=== PATIENT | female | born 1960 | race Caucasian/White ===

== ENCOUNTER 2019-06-24 12:40 | Inpatient (IN) | payer BC ==
[2019-06-24] VITALS (9 sets, daily range): BP systolic 109–148; BP diastolic 60–98
[~2019-06-24] VITALS: Ht 167.6 cm; Wt 63.2 kg
--- NOTE | ~2019-06-24 | EMS ---
[address] [address] EMS Patient Care Report Name: ELIZABETH DOUGHERTY Room #: 213-P ADM IN M.R.#: [id number] Admission: 06/24/19 Attend Phys: Lupillo Stark MD Discharge: Date of : 64 Report #: [id number] THIS REPORT FOR: //name// Report Transmitted: 06/24/2019 14:38 EMS Care Summary [facility] MED-ACT Incident [id number] @ 06/24/2019 12:05 Incident [address] [place] [address] Patient ELIZABETH MORALES Female, 58 Years 1960 Patient Address [address] [place] [address] Patient History Fibromyalgia, Patient Allergies Sulfa, Patient Medications None Reported, Chief Complaint "I'm having chest pain" Disposition Transported No Lights/[place] Dispatch Reason Chest Pain (Non-Traumatic) Transported To [facility] Narrative EMS dispatched to a local residence for a female patient who states that about 15 minutes ago she started having some chest pain while "sitting on the couch looking at Facebook". The patient describes her pain as sharp, and radiating pain to the center of her shoulder blades. The patient denies: shortness of [address] [address] EMS Patient Care Report Name: ELIZABETH DOUGHERTY Room #: 213-P ADM IN [place]#: [id number] Admission: 06/24/19 Attend Phys: Lupillo Stark MD Discharge: Date of : 64 Report #: [id number] breath, abdominal pain, numbness or tingling in her upper or lower extremities, difficulty speaking, recent illness, recent trauma or injury, shortness of breath upon exertion. In addition, the patient states she does have an increase in pain upon inspiration. Initial assessment is performed on patient with bilateral blood pressures, 12lead and Aspirin administration. Shortly after the 12lead "flags" a STEMI, dispatch is contacted for closes facility. [place] is alerted of STEMI activation and the 12lead is sent to [facility]. The cot is brought into the patient's house as to not physically exert the patient. She is able to stand and pivot to cot where secured with shoulder straps. The patient is then moved to MICU Where secured. En route to MICU multiple 12leads are performed to confirm STEMI. Once secured in the MICU, IV is established, Fentanyl is given and Nitroglycerine is administered per protocol. The hospital is updated multiple times en route of condition and treatment plan. Upon arrival at the hospital, the ER doctor is given report along with the RN. The patient is moved to hospital bed via sheet drag and care is transferred without incident. Initial Vitals @12:32P: 97,R: 16,BP: 176/108,Pain: 6/10,GCS: 15,SpO2: 100,Revised Trauma: 12,CA Suspected: true @12:17P: 96,R: 16,BP: 191/121,Pain: 8/10,GCS: 15,SpO2: 100,Revised Trauma: 12,CA Suspected: true @12:25P: 104,R: 16,BP: 188/118,Pain: 6/10,GCS: 15,Glucose: 107,SpO2: 100,Revised Trauma: 12,CA Suspected: true @PTAP: 106,R: 16,BP: 173/94,Pain: 8/10,GCS: 15,SpO2: 100,Revised Trauma: 12,CA Suspected: false @12:16P: 105,R: 16,BP: 192/123,Pain: 8/10,GCS: 15,SpO2: 99,Revised Trauma: 12,CA Suspected: true @12:29P: 96,R: 16,BP: 180/113,Pain: 6/10,GCS: 15,SpO2: 100,Revised Trauma: 12,CA Suspected: true @12:14P: 103,R: 16,BP: 192/123,Pain: 8/10,GCS: 15,SpO2: 100,Revised Trauma: 12,CA Suspected: true @12:27P: 107,R: 16,BP: 182/114,Pain: 6/10,GCS: 15,SpO2: 100,Revised Trauma: 12,CA Suspected: true @12:35P: 99,R: 16,BP: 175/105,Pain: 4/10,GCS: 15,SpO2: 100,Revised Trauma: 12,CA Suspected: true Assessments @12:14MENTAL:Person Oriented,Time Oriented,Event Oriented,Place Oriented,SKIN:HEENT:Head/Face: No Abnormalities,LUNG SOUNDS:General: No Abnormalities,ABDOMEN:General: No Abnormalities,PELVIS//GI:No Abnormalities,EXTREMITIES:Left Arm: No Abnormalities,Right Arm: No Abnormalities,Left Leg: No Abnormalities,Right Leg: No [facility] [address] [place] [address] EMS Patient Care Report Name: ELIZABETH DOUGHERTY Room #: 213-P ADM IN [place].#: [id number] Admission: 06/24/19 Attend Phys: Lupillo Stark MD Discharge: Date of : 64 Report #: [id number] Abnormalities,PULSE:NEURO:No Abnormalities,@12:30MENTAL:Event Oriented,Person Oriented,Place Oriented,Time Oriented,SKIN:HEENT:Head/Face: No Abnormalities,LUNG SOUNDS:General: No Abnormalities,ABDOMEN:General: No Abnormalities,PELVIS//GI:EXTREMITIES:Left Arm: No Abnormalities,Right Arm: No Abnormalities,Left Leg: No Abnormalities,Right Leg: No Abnormalities,PULSE:NEURO:No Abnormalities, Impression Chest Pain / Discomfort Procedures @12:3512-Lead ECGResponse: UnchangedSucceeded@12:1412-Lead ECGResponse: UnchangedSucceeded@12:1712-Lead ECGResponse: UnchangedSucceeded@12:2912-Lead ECGResponse: UnchangedSucceeded@12:32Saline Lock 10cc (20 ga) Site: Hand-LeftResponse: UnchangedSucceeded@12:32Nitroglycerin - 0.4 Milligrams (mg) - SublingualResponse: Improved@12:32Fentanyl - 50 Micrograms (mcg) - Intravenous (IV)Response: Improved@12:15Aspirin - 324 Milligrams (mg) - OralResponse: Unchanged Timeline ENGINEERING FACULTY,BP: 173/94 M,PULSE: 106,RR: 16 R,SPO2: 100 Ox,ETCO2: ,BG: ,PAIN: 8,GCS: 15, 12:05,Call Received 12:05,Psap Call 12:05,Dispatched 12:06,En Route 12:12,On Scene 12:13,At Patient 12:14,12-Lead ECG,Response: UnchangedSucceeded, 12:14,BP: 192/123 M,PULSE: 103,RR: 16 R,SPO2: 100 Ox,ETCO2: ,BG: ,PAIN: 8,GCS: 15, 12:15,Aspirin - 324 Milligrams (mg) - Oral,Response: Unchanged 12:16,BP: 192/123 M,PULSE: 105,RR: 16 R,SPO2: 99 Ox,ETCO2: ,BG: ,PAIN: 8,GCS: 15, 12:17,12-Lead ECG,Response: UnchangedSucceeded, 12:17,BP: 191/121 M,PULSE: 96,RR: 16 R,SPO2: 100 Ox,ETCO2: ,BG: ,PAIN: 8,GCS: 15, 12:25,BP: 188/118 M,PULSE: 104,RR: 16 R,SPO2: 100 Ox,ETCO2: ,B,PAIN: 6,GCS: 15, 12:27,Depart Scene 12:27,BP: 182/114 M,PULSE: 107,RR: 16 R,SPO2: 100 Ox,ETCO2: ,BG: ,PAIN: 6,GCS: 15, 12:29,12-Lead ECG,Response: UnchangedSucceeded, 12:29,BP: 180/113 M,PULSE: 96,RR: 16 R,SPO2: 100 Ox,ETCO2: ,BG: ,PAIN: 6,GCS: 15, 12:32,Saline Lock 10cc 20 ga Site: Hand-Left,Response: UnchangedSucceeded, 12:32,Fentanyl - 50 Micrograms (mcg) - Intravenous (IV),Response: Improved [facility] [address] [place] [address] EMS Patient Care Report Name: ELIZABETH DOUGHERTY Room #: 213-P ADM IN M.R.#: [id number] Admission: 06/24/19 Attend Phys: Lupillo Stark MD Discharge: Date of : 64 Report #: [id number] 12:32,Nitroglycerin - 0.4 Milligrams (mg) - Sublingual,Response: Improved 12:32,BP: 176/108 M,PULSE: 97,RR: 16 R,SPO2: 100 Ox,ETCO2: ,BG: ,PAIN: 6,GCS: 15, 12:35,12-Lead ECG,Response: UnchangedSucceeded, 12:35,BP: 175/105 M,PULSE: 99,RR: 16 R,SPO2: 100 Ox,ETCO2: ,BG: ,PAIN: 4,GCS: 15, 12:37,At Destination 13:19,Call Closed Disclaimer v1.1 Copyright 2019 [employer] This EMS Care Summary contains data elements from the applicable legal record (which may be displayed differently). It is designed to provide pertinent information for the following purposes: continuity of care, clinical quality, and state data reporting. The complete legal record is available to ED staff and administrators of the receiving hospital in [employer] Patient Tracker. All data is provided "as is."
[2019-06-24 13:03] LABS: CREATININE 0.8 mg/dL (0.6-1.0); POTASSIUM 3.6 mmol/L (3.5-5.1)
[2019-06-24 13:05] LABS: ABSOLUTE NEUTROPHILS 3.3 thou/uL (1.4-8.2); BASOPHILS 1.2 % (0.0-2.0); EOSINOPHILS 0.5 % (0.0-3.0); HEMATOCRIT 42.1 % (37.0-47.0); HEMOGLOBIN 14.3 gm/dL (12.0-15.0); LYMPHOCYTES 35.1 % (24.0-44.0); MCH 30.9 pg (26.0-34.0); MCHC 33.9 g/dL (28.0-37.0); MCV 91.2 fL (80.0-100.0); MONOCYTES 4.9 % (1.0-8.0); PLATELET COUNT 192 thou/uL (150-400); POLYS 58.3 % (36.0-66.0); RBC 4.62 mil/uL (4.20-5.00); RDW 13.2 % (10.5-14.5); WBC 5.7 thou/uL (4.0-11.0)
[2019-06-24 13:16] LABS: TROPONIN-I 0.92 ng/mL (<0.06)
--- NOTE | 2019-06-24 15:58 | CATHLAB ---
[facility] [address] [place] [address] INVASIVE PROCEDURE REPORT Name: ELIZABETH DOUGHERTY Room #: 213-P ADM IN .R.#: [id number] Admission: 06/24/19 Attend Phys: Lupillo Stark MD Discharge: Date of : 64 Report #: [id number] THIS REPORT FOR: //name// APPROVED REPORT Study performed: 06/24/2019 13:52:25 Patient Details Patient Status: Out-Patient Room #: The patient is a 58 year-old female Event Personnel Domo Young Publicity Consultant, Chely Chacon RTR Scrub, Mario Jara RN, Goyo Pickering RTR Monitor, Jai Simons RTR Scrub Procedures Performed Art Access - R femoral artery* Left Heart Cath w/or w/o Coronaries [id number] [facility] [address] Initial Mod Sed Same Phys/QHP Gr5y [id number] 86554 Mod Sed Same Phys/QHP Ea [id number] Hemostasis w/ Mynx Indication Abnormal ECG, Non-STEMI , Dyspnea, Chest pain Risk Factors Hypercholesterolemia, Hypertension, History of Crohn's disease. Procedure Narrative The Right Groin^ was infiltrated with 1% Lidocaine subcutaneous anesthesia. A PINNACLE 6FR Sheath #[id number] sheath was inserted into the . Coronary angiography was performed using coronary diagnostic catheters. The right coronary system was accessed and visualized with a JR4 catheter. The left coronary system was accessed and visualized with a JL4 catheter. The left ventricle was accessed and visualized with a pigtail catheter. Left ventricular/Aortic Valve gradient assessed via catheter pullback. Left ventriculogram was performed in 30 degree projection. Pre-demployment femoral angiogram was performed . Closure device was deployed with a Fr [id number] 6/7F #[id number]. The patient tolerated the procedure well and there were no complications associated with the procedure. There was no hematoma. Intraoperative Conscious Sedation Sedation start time: 1357 Case end Time: 1429 [facility] [address] [place] [address] INVASIVE PROCEDURE REPORT Name: ELIZABETH DOUGHERTY Room #: 213-P [facility] IN [facility].#: [id number] Admission: 06/24/19 Attend Phys: Lupillo Stark MD Discharge: Date of : 64 Report #: [id number] Fentanyl 50 mcg Versed 1 mg Fluoro Time: 2.20 minutes Dose: DAP 2075.80 cGycm2 265 mGy Contrast Type and Amount: Visipaque 85 ml Coronary Angiography The patient's coronary anatomy is right dominant. Diagnostic Cath Left Main This is a patent vessel, with no flow-limiting lesions. LAD There is a moderate size caliber vessel, traversing the anterior wall and wrapping around the apex. There are no flow-limiting lesions. There is mild to moderate diffuse disease within the mid segment, 30-40%. Diagonal 1 This is a patent vessel, with no flow-limiting lesions. Circumflex This is a patent vessel, with no flow-limiting lesions. Supplies one obtuse marginal artery. OM1 This is a patent vessel, with no flow-limiting lesions. Right Coronary This is a dominant vessel, patent with no flow-limiting lesions in the RCA proper. R PDA This is a patent vessel, with no flow-limiting lesions. RPLV There are several RPL branches, patent with no flow-limiting lesions. Left Ventriculography The left ventricle is normal in size with abnormal contractility. The left ventricular ejection fraction is estimated to be >55%. There is focal hypokinesis involving the apical region. Hemodynamics The aortic pressure is 141/70 mmHg with a mean of 67 mmHg. The left ventricular pressure is 141/9 mmHg with a mean of mmHg. The left ventricular end diastolic pressure is 33 mmHg. Conclusion 1. There is mild to moderate disease in the midsegment of the LAD. 2. The left circumflex artery and RCA are both patent vessels, with no flow-limiting lesions. 3. Right dominant system. 4. Normal ejection fraction with focal hypokinesis of the apical region. Her presentation and cardiac catheterization findings may represent transient coronary vasospasm/mild [facility] [address] [place] [address] INVASIVE PROCEDURE REPORT Name: ELIZABETH DOUGHERTY Room #: 213-P ADM IN M.R.#: [id number] Admission: 06/24/19 Attend Phys: Lupillo Stark MD Discharge: Date of : 64 Report #: [id number] cardiomyopathy. 5. Recommend aggressive risk factor management. <ELECTRONICALLY SIGNED> By: Domo Young MD 06/24/19 1558 57 155 Domo Young MD /INF
[2019-06-25 00:55] VITALS: BP 111/59
[2019-06-25 04:55] VITALS: BP 153/95
[2019-06-25 05:20] LABS: HEMATOCRIT 39.6 % (37.0-47.0); HEMOGLOBIN 13.3 gm/dL (12.0-15.0); MCHC 33.6 g/dL (28.0-37.0); MCV 92.1 fL (80.0-100.0); RBC 4.3 mil/uL (4.20-5.00); RDW 13.2 % (10.5-14.5); WBC 5.1 thou/uL (4.0-11.0)
[2019-06-25 05:44] LABS: CALCIUM 8.5 mg/dL (8.5-10.1); CREATININE 0.8 mg/dL (0.6-1.0); POTASSIUM 3.3 mmol/L (3.5-5.1)
[2019-06-25 05:56] LABS: TROPONIN-I 1.6 ng/mL (<0.06)
[2019-06-25 07:37] VITALS: BP 112/66
--- NOTE | 2019-06-25 07:42 | HC ---
[facility] [place] [address] CONSULTATION Name: ELIZABETH DOUGHERTY Room #: 213-P ADM IN M.R.#: [id number] Admission: 06/24/19 Attend Phys: Lupillo Stark MD Discharge: Date of : 64 Report #: [id number] THIS REPORT FOR: //name// CC: FAM unknown NO PCP Lupillo Stark DATE OF SERVICE: 06/24/2019 CARDIOLOGY CONSULT INDICATION: Chest pain. HISTORY OF PRESENT ILLNESS: This is a pleasant 58-year-old female with a history of Crohn's disease and hypertension, presenting with acute onset of chest pain. She had been in bed when she developed a discomfort in the left chest area, eventually radiating down the left arm. She felt dyspneic, lightheaded and mildly diaphoretic. The pain persisted and she called 911. Initial EKG revealed Q-waves in V1-V3 with ST elevation. There were reciprocal changes in the inferolateral leads. She denies any recent fever, chills or diarrhea. No prior cardiac history. PAST MEDICAL HISTORY: Crohn's disease, hypertension. Denies any history of diabetes. ALLERGIES: None. MEDICATIONS: Include Imuran, Bystolic, hydrochlorothiazide and Procardia. SOCIAL HISTORY: Denies tobacco use. Works for the [employer] [place]. FAMILY HISTORY: Negative for premature CAD. REVIEW OF SYSTEMS: See HPI. PHYSICAL EXAMINATION: VITAL SIGNS: Blood pressure is 120/70, heart rate is 99 beats per minute. GENERAL APPEARANCE: This is a well-developed, well-nourished female in no acute respiratory distress. HEENT: Normocephalic, atraumatic. Oral mucosa moist. NECK: Supple. LUNGS: Clear to auscultation. CARDIAC: Regular rate and rhythm, S1, S2 positive. ABDOMEN: Soft, nontender. EXTREMITIES: No cyanosis, no edema. [facility] [address] [place] [address] CONSULTATION Name: ELIZABETH DOUGHERTY Room #: 213-P ADM IN [place].#: [id number] Admission: 06/24/19 Attend Phys: Lupillo Stark MD Discharge: Date of : 64 Report #: [id number] DIAGNOSTIC DATA: ECG by EMS reveals sinus rhythm, 1-[address] segment elevations in leads V2-V3 with reciprocal ST depressions in the inferolateral leads. EKG #2 done in the ER with partial resolution of chest pain reveals sinus rhythm with resolution of the ST segment changes in V2, V3 and mild ST segment depressions in the inferolateral leads. LABORATORY DATA: Troponin is positive. ASSESSMENT AND PLAN: 1. Acute myocardial infarction, with partial resolution of symptoms. Troponin level was positive, and the patient is having persistent mild discomfort on the left side. We will proceed with a cardiac catheterization. Risks, benefits and alternatives discussed. The patient understands and wishes to proceed. 2. Hypertension, continue with medications. 3. Hypercholesterolemia, we will start a statin medication. 4. Crohn's disease, continue with medications. <ELECTRONICALLY SIGNED> By: Domo Young MD 06/25/19 0742 1355 0100 Domo Young MD /nt
--- NOTE | 2019-06-25 08:20 | EKG ---
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 : 1960 Requested By: Kirby Hollis Order Number: [id number] MD: Sandro Robles Measurements Intervals [place] Rate: 99 P: 44 WI: 141 QRS: 28 QRSD: 85 T: 7 QT: 382 QTc: 491 Interpretive Statements Sinus rhythm Possible anteroseptal infarct, old Nonspecific repol abnormality, diffuse leads No previous ECG available for comparison Electronically Signed On 06-25-2019 8:20:05 CDT by Sandro Robles [email or web address] <ELECTRONICALLY SIGNED> By: Sandro Robles MD, [facility] 06/25/19 0820 124 40 Sandro Robles MD, [facility] /EPI
--- NOTE | 2019-06-25 08:32 | EKG ---
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
--- NOTE | 2019-06-25 10:27 | 2DMMODE ---
[facility] [place] [place] [address] 2 D/M-MODE ECHOCARDIOGRAM Name: ELIZABETH DOUGHERTY Room #: 213-P ADM IN M.R.#: [id number] Admission: 06/24/19 Attend Phys: Lupillo Stark MD Discharge: Date of : 64 Report #: [id number] THIS REPORT FOR: //name// APPROVED REPORT Study performed: 06/25/2019 08:26:12 EXAM: Comprehensive 2D, Doppler, and color-flow Echocardiogram Patient Location: Echo lab Status: routine BSA: 1.71 HR: 77 bpm BP: 112/66 mmHg Rhythm: NSR Other Information Study Quality: Adequate Technically limited study due to breast implants. Indications NSTEMI. Mild CAD no intervention. Hx: HTN, HLP. 2D Dimensions RVDd: 25.13 mm IVSd: 11.30 (7-11mm) LVOT Diam: 20.49 (18-24mm) LVDd: 27.93 mm PWd: 11.04 (7-11mm) Ascending Ao: 30.53 (22-36mm) LVDs: 21.21 (25-40mm) Aortic Root: 29.34 mm Volumes Left Atrial Volume (Systole) Single Plane 4CH: 18.18 mL Single Plane 2CH: 39.21 mL LA ESV Index: 20.00 mL/m2 Aortic Valve AoV Peak Rustam.: 1.17 m/s AO Peak Gr.: 5.50 mmHg LVOT Max P.46 mmHg LVOT Max V: 0.93 m/s CATINA Vmax: 2.61 cm2 AI Vmax: 3.59 m/s AI Emmons: 2.78 m/s2 AI PHT: 373.67 ms [facility] [address] [place] [address] 2 D/M-MODE ECHOCARDIOGRAM Name: LADONNAELIZABETH Room #: [facility] IN ..#: [id number] Admission: 06/24/19 Attend Phys: Lupillo Stark MD Discharge: Date of : 64 Report #: [id number] Mitral Valve E/A Ratio: 0.9 MV Decel. Time: 183.24 ms MV E Max Rustam.: 0.62 m/s MV A Rustam.: 0.68 m/s MV PHT: 53.14 ms IVRT: 87.66 ms Pulmonary Valve PV Peak Rustam.: 0.85 m/s PV Peak Gr.: 2.91 mmHg Pulmonary Vein P Vein S: 0.79 m/s P Vein A: 0.42 m/s P Vein D: 0.46 m/s P Vein A Dur.: 87.7 msec P Vein S/D Ratio: 1.72 Tricuspid Valve TR Peak Rustam.: 2.47 m/s RAP Estimate: 10.00 mmHg TR Peak Gr.: 24.40 mmHg PA Pressure: 35.00 mmHg Left Ventricle The left ventricle is normal size. Regional wall motion abnormalities are noted. There is hypokinesis of the apicoseptum and distal inferior wall. There is normal left ventricular wall thickness. The left ventricular systolic function is low normal. LVEF is 50%. Mild diastolic dysfunction is present (impaired relaxation pattern). Right Ventricle The right ventricle is normal size. The right ventricular systolic function is normal. Atria The left atrium size is normal. The right atrium size is normal. Aortic Valve The aortic valve is normal in structure. Mild aortic regurgitation. There is no aortic valvular stenosis. Mitral Valve The mitral valve is normal in structure. Trace mitral regurgitation. No evidence of mitral valve stenosis. [facility] [address] [place] [address] 2 D/M-MODE ECHOCARDIOGRAM Name: ELIZABETH DOUGHERTY Room #: 213-P ADM IN M.R.#: [id number] Admission: 06/24/19 Attend Phys: Lupillo Stark MD Discharge: Date of : 64 Report #: [id number] Tricuspid Valve The tricuspid valve is normal in structure. Mild tricuspid regurgitation. Estimated PAP is 35mmHg. Pulmonic Valve The pulmonary valve is normal in structure. Mild pulmonic regurgitation. Great Vessels The aortic root is normal in size. The ascending aorta is normal in size. IVC is normal in size and collapses <50% with inspiration. Pericardium There is no pericardial effusion. <Conclusion> The left ventricle is normal size. The left ventricular systolic function is low normal. There is hypokinesis of the apicoseptum and distal inferior wall. Mild diastolic dysfunction is present (impaired relaxation pattern). The right ventricle is normal size. The left atrium size is normal. Mild aortic regurgitation. Trace mitral regurgitation. Mild tricuspid regurgitation. Estimated PAP is 35mmHg. <ELECTRONICALLY SIGNED> By: Domo Young MD 06/25/19 1026 1026 1026 Domo Young MD /INF
[2019-06-25 11:51] VITALS: BP 110/69
[2019-06-25 17:02] VITALS: BP 100/60
[2019-06-25 19:45] VITALS: BP 129/78
[2019-06-26] VITALS (7 sets, daily range): BP systolic 112–167; BP diastolic 58–103
[2019-06-26 05:46] LABS: CALCIUM 9.1 mg/dL (8.5-10.1); CREATININE 0.8 mg/dL (0.6-1.0); MAGNESIUM 1.5 mg/dL (1.8-2.4); POTASSIUM 4.1 mmol/L (3.5-5.1)
[2019-06-26] MEDS ORDERED: SAVELLA50 MG PO (11:35)
[2019-06-26] MEDS ORDERED: CLARINEX5 MG PO (11:35)
[2019-06-26] MEDS ORDERED: PROTONIX40 M2 PO (11:36)
[2019-06-26] MEDS ORDERED: IMURAN 50MG TAB50 M1 PO (11:36)
[2019-06-26] MEDS ORDERED: IRON325 PO (11:37)
[2019-06-26] MEDS ORDERED: PREMARIN1.25 MG PO (11:38)
[2019-06-26] MEDS ORDERED: VITAMIN B-2100 MG PO (11:39)
[2019-06-26] MEDS ORDERED: FLEXERIL PO (11:40)
[2019-06-26] MEDS ORDERED: HUMIRA CRO40 MG/0.8 SUBQ (11:42)
[2019-06-26] MEDS ORDERED: KLOR-CON M2020 MEQ PO (11:43)
[2019-06-27 00:50] VITALS: BP 111/60
[2019-06-27 04:55] VITALS: BP 101/56
[2019-06-27 06:18] LABS: CALCIUM 8.4 mg/dL (8.5-10.1); CREATININE 0.6 mg/dL (0.6-1.0); POTASSIUM 4.7 mmol/L (3.5-5.1); TROPONIN-I 0.21 ng/mL (<0.06)
[2019-06-27 08:53] VITALS: BP 121/67
[2019-06-27] MEDS ORDERED: IMDUR 30 MG TAB30 M1 PO (10:47)
[2019-06-27] MEDS ORDERED: CLOPIDOGREL75 MG PO (10:47)
[2019-06-27] MEDS ORDERED: NITROGLYCERIN0.4 MG SUBLING (10:47)
[2019-06-27] MEDS ORDERED: LIPITOR 20 MG T20 M1 PO (10:47)
[2019-06-27] MEDS ORDERED: ASPIR 8181 MG PO (10:47)
[2019-06-27] MEDS ORDERED: CARDIZEM CD 18180 M3 PO (10:47)
[2019-06-27] MEDS ORDERED: MAGNESIUM400 MG PO (10:47)
[2019-06-27 11:34] VITALS: BP 121/67
[2019-06-27 13:26] VITALS: BP 121/67
== END 2019-06-27 13:00 | disposition home or self-care (01) | DRG 287 ==
LOC: ER 12:40 → 2N 13:49 → EROBS 13:49 → 2N 15:28 → ENTRNSPT 06-27 12:56 → EDTRNSPTSTS 06-27 12:58 → 2N 06-27 13:00
PROVIDERS: Emergency Medicine; Internal Medicine Cardiovascular Disease; ADMIT Internal Medicine
PROC: B211YZZ Fluoroscopy of Multiple Coronary Arteries using Other Contrast (ICD-10-PCS; principal; 2019-06-24)
PROC: B41FYZZ Fluoroscopy of Right Lower Extremity Arteries using Other Contrast (ICD-10-PCS; principal; 2019-06-24)
PROC: B215YZZ Fluoroscopy of Left Heart using Other Contrast (ICD-10-PCS; principal; 2019-06-24)
PROC: 4A023N7 Measurement of Cardiac Sampling and Pressure, Left Heart, Percutaneous Approach (ICD-10-PCS; principal; 2019-06-24)
DX: I25.110 Atherosclerotic heart disease of native coronary artery with unstable angina pectoris (principal); K50.90 Crohn's disease, unspecified, without complications; I51.81 Takotsubo syndrome; I10 Essential (primary) hypertension; E78.00 Pure hypercholesterolemia, unspecified; F12.90 Cannabis use, unspecified, uncomplicated; F41.9 Anxiety disorder, unspecified; I25.10 Atherosclerotic heart disease of native coronary artery without angina pectoris; E78.5 Hyperlipidemia, unspecified; Z88.2 Allergy status to sulfonamides; Z88.8 Allergy status to other drugs, medicaments and biological substances; Z79.82 Long term (current) use of aspirin; Z79.899 Other long term (current) drug therapy
CPT/HCPCS: 10081; 10194